=== PATIENT | female | born 1990 | race Two or more races ===

== ENCOUNTER 2022-10-28 12:05 | Inpatient (IN) | payer BC ==
[~2022-10-28] VITALS: Ht 152.4 cm; Wt 1.4 kg
[2022-10-28] MEDS ORDERED: PRENATAL + DHA1 EAC1 PO (13:37)
[2022-10-28] MEDS ORDERED: REGLAN5 MG/5 ML PO (13:38)
[2022-10-28] MEDS ORDERED: UNISOM25 MG PO (13:38)
== END 2022-11-02 14:58 | disposition home or self-care (01) | DRG 787 ==
LOC: LDR 12:05 → OB/GYN 12:05
PROVIDERS: ADMIT Obstetrics & Gynecology Gynecology; ATTEND Obstetrics & Gynecology Gynecology
PROC: 4A1HXCZ Monitoring of Products of Conception, Cardiac Rate, External Approach (ICD-10-PCS; 2022-10-28)
PROC: BY4FZZZ Ultrasonography of Third Trimester, Single Fetus (ICD-10-PCS; 2022-10-29)
PROC: 10D00Z1 Extraction of Products of Conception, Low, Open Approach (ICD-10-PCS; principal; 2022-10-30 10:00)
DX: O36.8130 Decreased fetal movements, third trimester, not applicable or unspecified (principal); O41.03X0 Oligohydramnios, third trimester, not applicable or unspecified; O13.4 Gestational [pregnancy-induced] hypertension without significant proteinuria, complicating childbirth; O26.843 Uterine size-date discrepancy, third trimester; O36.5930 Maternal care for other known or suspected poor fetal growth, third trimester, not applicable or unspecified; Z3A.34 34 weeks gestation of pregnancy; Z37.0 Single live birth; Z20.822 Contact with and (suspected) exposure to COVID-19